=== PATIENT | male | born 1995 | race Caucasian/White ===

== ENCOUNTER 2018-04-21 06:46 | Day surgery (SDC) | payer OTHER ==
[2018-04-21] MEDS ORDERED: POLYMYXIN/BACITRACIN 1L IRRIG (06:57)
[2018-04-21] MEDS ORDERED: LIDOCAINE 1% (MPF) 30 ML INJ (06:57)
[2018-04-21] MEDS ORDERED: BUPIVACAINE 0.5% (SDV) 30 ML INJ (06:57)
[2018-04-21] MEDS: BUPIVACAINE 0.5% 30 ML VIAL INJ (07:15)
[2018-04-21] MEDS: POLYMYXIN/BACITRACIN 1L IRRIG IRR (07:15)
[2018-04-21] MEDS: LIDOCAINE 1% (MPF) 30 ML INJ INJ (07:15)
[2018-04-21] MEDS ORDERED: CEFAZOLIN 1 GM INJ (07:35)
[2018-04-21] MEDS ORDERED: PROPOFOL 20 ML (07:35)
[2018-04-21] MEDS ORDERED: LIDOCAINE 2% (SDV) 5 ML INJ (07:35)
[2018-04-21] MEDS ORDERED: MEPERIDINE 100 MG INJ (07:35)
[2018-04-21] MEDS ORDERED: ONDANSETRON 4 MG INJ (07:35)
[2018-04-21] MEDS ORDERED: ROPIVACAINE 0.5 % 30 ML VIAL (08:05)
[2018-04-21] MEDS ORDERED: DEXAMETHASONE 4 MG/ML 1 ML INJ (08:05)
[2018-04-21] MEDS: ONDANSETRON 4 MG INJ IV (09:27)
[2018-04-21] MEDS: FENTAnyl 50 MCG/ML VIAL IV ×2 (09:27→09:33)
[2018-04-21] MEDS: MEPERIDINE 25 MG INJ IV (09:27)
[2018-04-21] MEDS: OXYCODONE/ACETAMINOPHEN (5/325) TAB PO (09:28)
[2018-04-21] MEDS ORDERED: FENTAnyl 50 MCG/ML VIAL IV ×2 (09:30)
[2018-04-21] MEDS ORDERED: DIPHENHYDRAMINE 50 MG INJ IV (09:30)
[2018-04-21] MEDS ORDERED: OXYCODONE/ACETAMINOPHEN (5/325) TAB PO (09:30)
[2018-04-21] MEDS ORDERED: HYDROmorphONE 1 MG/5 ML IV SYRINGE IV ×3 (09:30)
[2018-04-21] MEDS: MIDAZOLAM 1 MG/ML 2 ML INJ IV (09:35)
[2018-04-21] MEDS: METOCLOPRAMIDE 10 MG INJ IV (10:28)
== END 2018-04-21 12:21 | disposition home or self-care (01) ==
LOC: SDS 06:46
DX: S52.201A Unspecified fracture of shaft of right ulna, initial encounter for closed fracture (principal); Z87.891 Personal history of nicotine dependence
CPT/HCPCS: 25400; 73090-RT

== ENCOUNTER 2018-06-10 12:59 | Day surgery (SDC) | payer OTHER ==
[~2018-06-10 12:59] MED LIST: CEFAZOLIN 2 GM/50 ML (PMX) 50 ML IVPB; LACTATED RINGER'S 1,000 ML IV*
[2018-06-10] MEDS ORDERED: BUPIVACAINE 0.5% (SDV) 30 ML INJ (15:51)
[2018-06-10] MEDS ORDERED: LIDOCAINE 1% (MPF) 30 ML INJ (15:51)
[2018-06-10] MEDS ORDERED: MIDAZOLAM 1 MG/ML 2 ML INJ (16:38)
[2018-06-10] MEDS ORDERED: ROPIVACAINE 0.5 % 30 ML VIAL (16:53)
[2018-06-10] MEDS ORDERED: LIDOCAINE 2% (SDV) 5 ML INJ (18:06)
[2018-06-10] MEDS ORDERED: ROCURONIUM 50 MG INJ (18:06)
[2018-06-10] MEDS ORDERED: CEFAZOLIN 1 GM INJ (18:06)
[2018-06-10] MEDS ORDERED: PROPOFOL 20 ML (18:06)
[2018-06-10] MEDS ORDERED: ONDANSETRON 4 MG INJ ×2 (18:07→18:38)
[2018-06-10] MEDS ORDERED: GLYCOPYRROLATE 0.4 MG INJ (18:09)
[2018-06-10] MEDS ORDERED: NEOSTIGMINE 3 MG/3 ML SYRINGE (18:09)
[2018-06-10] MEDS ORDERED: MEPERIDINE 25 MG INJ (18:43)
[2018-06-10] MEDS: ONDANSETRON 4 MG INJ IV (18:51)
[2018-06-10] MEDS: MEPERIDINE 25 MG INJ IV (18:51)
[2018-06-10] MEDS ORDERED: FENTAnyl 50 MCG/ML VIAL IV (19:00)
[2018-06-10] MEDS ORDERED: DIPHENHYDRAMINE 50 MG INJ IV (19:00)
[2018-06-10] MEDS ORDERED: HYDROmorphONE 1 MG/5 ML IV SYRINGE IV ×2 (19:00)
[2018-06-10] MEDS ORDERED: METOCLOPRAMIDE 10 MG INJ (19:16)
== END 2018-06-10 21:11 | disposition home or self-care (01) ==
LOC: SDS 12:59
DX: S52.001K Unspecified fracture of upper end of right ulna, subsequent encounter for closed fracture with nonunion (principal); X58.XXXD Exposure to other specified factors, subsequent encounter
CPT/HCPCS: 25400; 73090-RT